=== PATIENT | female | born 1945 | race Caucasian/White ===

== ENCOUNTER 2018-04-06 14:04 | Outpatient (CLI) | payer MEDICARE, BC | END 2018-04-06 14:05 | disposition home or self-care (01) | LOC: BICMAMMO 14:04 | PROVIDERS: ATTEND Internal Medicine | DX: Z12.31 Encounter for screening mammogram for malignant neoplasm of breast (principal); R92.1 Mammographic calcification found on diagnostic imaging of breast; Z80.3 Family history of malignant neoplasm of breast | CPT/HCPCS: 77063; 77067 ==

== ENCOUNTER 2018-11-20 10:45 | Inpatient (IN) | payer MEDICARE, BC ==
[2018-11-20] MEDS ORDERED: Ondansetron PF 4 MG/2 ML Vial ONE (11:22)
[2018-11-20] MEDS ORDERED: Fentanyl 100 MCG/2 ML VIAL ONE (11:22)
[2018-11-20 11:50] LABS: Hemoglobin 12.7 g/dL (12.0-16.0); Mean Corpuscular HGB CONC 33.6 g/dL (32.0-36.0); Mean Corpuscular Hemoglobin 32.3 pg (27.0-31.0); Mean Corpuscular Volume 96.1 fL (78.0-98.0); Mean Platelet Volume 8.7 fL (7.4-10.4); Platelet Count 240 thou/uL (130-400); RBC Distribution Width 12.1 % (11.5-14.5); Red Blood Cell (RBC) Count 3.92 mill/uL (4.20-5.40)
--- NOTE | 2018-11-20 12:04 | CT ---
NONCONTRAST ENHANCED CT IMAGES PELVIS: HISTORY: Evaluate for perirectal abscess. FINDINGS: Noncontrast enhanced CT images of the pelvis demonstrate no dilated loops of small bowel. A large flaco unt of stool is seen in the rectum. A small pocket of gas is seen just to the right of the anus. This may represent possible perianal fissure. Unfortunately, without IV contrast it is difficult to r ule out the possibility of an abscess in this region. Surgical consultation is recommended. IMPRESSION: Small right perianal pocket of gas possibly presenting a fissure or drained abscess. Transcribed Date/Time: 11/20/2018 12:16 PM
[2018-11-20 12:11] LABS: Band 9 % (5-11); Eosinophils 1 % (0-10); Large Platelets SLIGHT; Lymphocytes 2 % (21-51); MDiff Complete? YES; Monocytes 5 % (0-10); Neutrophil 81 % (42-75); Platelet Morphology Comment Appears Adequate; RBC Morphology Normal; Reactive Lymphocytes 2 % (0-10); White Blood Cell (WBC) Count 23.4 thou/uL (4.8-10.8)
[2018-11-20 12:12] LABS: ALT (SGPT) 11 U/L (8-55); AST (SGOT) 16 U/L (5-34); Albumin 3.7 g/dL (3.4-4.8); Alkaline Phosphatase 71 U/L (40-150); Anion Gap 12 mmol/L (10-20); BUN (Urea Nitrogen) 27 mg/dL (9.8-20.1); Bilirubin, Total 0.7 mg/dL (0.2-1.2); Calc. Creatinine Clearance 0 mL/min (70-130); Calcium 9.7 mg/dL (7.8-10.44); Carbon Dioxide 26 mmol/L (23-31); Chloride 92 mmol/L (98-107); Estimated GFR-MDRD 67; Globulin 2.9 g/dL (2.4-3.5); Glucose 119 mg/dL (83-110); Potassium 3.4 mmol/L (3.5-5.1); Protein, Total 6.6 g/dL (6.0-8.3); Sodium 127 mmol/L (136-145)
[2018-11-20] MEDS ORDERED: Lidocaine 1% w/Epinephrine 1:100K 20 ML VIAL ONE (13:08)
[2018-11-20] MEDS ORDERED: metroNIDAZOLE 500 MG/100 ML BAG ONE (14:14)
[2018-11-20 15:04] LABS: Bilirubin Negative (Negative); Blood, Urine Negative (Negative); Clarity CLEAR (Clear); Glucose, Urine (Dipstick) Negative (Negative); Leukocyte Small (Negative); Nitrite Negative (Negative); Protein, Urine (Dipstick) Trace mg/dL (Neg-Trace); Specific Gravity, Urine 1.025 (1.002-1.036); Urobilinogen 0.2 mg/dL (0.2-1.0); pH, Urine 5.5 (5.0-9.0)
[2018-11-20 15:06] LABS: Bacteria/HPF None Seen HPF (None Seen)
[2018-11-20 15:07] LABS: Pathc Cast-AUWi Flag 6.93 (0-2.49)
[2018-11-20 15:15] LABS: Hyaline Casts/LPF 0-3 HYALINE CAST LPF (0-3 Hyaline); Other Casts/LPF None Seen LPF (0-3 Hyaline)
[2018-11-20] MEDS ORDERED: Dextrose 5% in Water 1,000 ML IV PRN (15:50)
[2018-11-20] MEDS ORDERED: Ondansetron PF 4 MG/2 ML Vial IVP PRN (15:50)
[2018-11-20] MEDS ORDERED: Dextrose 50% Abboject 50 ML SYRINGE SLOW IVP PRN (15:50)
[2018-11-20] MEDS ORDERED: HYDROcodone/Acetaminophen 7.5/325 mg Tablet PO PRN ×2 (15:54)
[2018-11-20] MEDS ORDERED: Piperacillin/Tazobactam 4.5 GM VIAL ONE ×2 (16:00→16:01)
[2018-11-20 18:03] VITALS: BMI 34.1
[2018-11-20] MEDS: Piperacillin/Tazobactam 3.375 GM in Sodium Chloride 0.9% 100 ML IVPB SCH (22:02)
[2018-11-20] MEDS: Docusate 100 MG CAP PO SCH (22:03)
--- NOTE | 2018-11-21 00:29 | HP ---
REASON FOR CONSULT: Perirectal abscess. HISTORY OF PRESENT ILLNESS: Ms. Kahn is a 73-year-old woman with a 1-week history of perirectal pain, which has been significantly worse over the past few days. She came into the Urgent Care yesterday and was given antibiotics and sent home. She has been having problems with constipation recently and has had hemorrhoids in the past. This pain was worse. She came back today and was sent to the ER for possible drainage. She has not noticed any discharge from the area. PAST MEDICAL HISTORY: Hypertension, hyperlipidemia, and anxiety. PAST SURGICAL HISTORY: Cholecystectomy, hysterectomy, and knee surgery. SOCIAL HISTORY: Former smoker. Rare alcohol. No drugs. She has adverse drug reactions to codeine. OUTPATIENT MEDICATIONS: Include: 1. Hydrochlorothiazide. 2. Lisinopril. 3. Zocor. 4. Meloxicam. 5. Metoprolol. 6. Clindamycin. 7. Citalopram. REVIEW OF SYSTEMS: Ten system review of systems is negative except per HPI. She has not had any fevers or chills or abdominal pain. PHYSICAL EXAMINATION: VITAL SIGNS: The patient is afebrile. Heart rate 84, respirations 18, 96% saturated on room air, and blood pressure 119/64. GENERAL: Reveals a healthy-appearing woman, in no acute distress, was lying on her side due to pain when she is on her back or sitting. She is not flushed or toxic in appearance. She is not jaundiced or icteric. HEENT: Unremarkable. NECK: Supple without lymphadenopathy. HEART: Regular in its rate and rhythm without murmurs, rubs, or gallops. LUNGS: Clear to auscultation bilaterally. ABDOMEN: Soft, nontender, and nondistended. No palpable masses or hernias. EXTREMITIES: Warm and well perfused without edema. NEUROLOGIC: No focal deficits. PSYCHIATRIC: Alert, oriented, and appropriate. Anal exam reveals erythema over the right buttock and perirectal area. There is fairly severe tenderness in the perirectal area and a pinpoint drainage site with no expressible drainage. No palpable rectal masses. CT obtained by the ER physician showed some gas in the perirectal area, as well as induration of the tissues in that area. LABORATORY DATA: White count is elevated at 23,000 with a left shift. Electrolytes are unremarkable. Potassium is a little low at 3.4 and sodium is a little low at 127. ASSESSMENT: Perirectal abscess with associated cellulitis. It appears that she has had some spontaneous drainage, but this is unlikely to be adequate given the pinpoint nature of the drainage site. I recommended formal I and D with drain placement, which was performed at the bedside. There was no significant pus obtained, so cultures were not sent. The patient will be admitted for IV antibiotics and wound care. If the cellulitis does not improve, then drainage under anesthesia may be necessary. The patient has received Flagyl and Zosyn in the emergency room and will be maintained on antibiotics. Job ID: [id number]
[2018-11-21] MEDS: Piperacillin/Tazobactam 3.375 GM in Sodium Chloride 0.9% 100 ML IVPB SCH ×4 (03:59→21:19)
[2018-11-21 06:17] LABS: Band 19 % (5-11); Lymphocytes 5 % (21-51); MDiff Complete? YES; Mean Corpuscular HGB CONC 34.3 g/dL (32.0-36.0); Mean Corpuscular Volume 96.1 fL (78.0-98.0); Mean Platelet Volume 9.5 fL (7.4-10.4); Monocytes 7 % (0-10); Neutrophil 69 % (42-75); Platelet Count 197 thou/uL (130-400); Platelet Morphology Comment Appears Adequate; RBC Distribution Width 12.2 % (11.5-14.5); RBC Morphology Normal; Red Blood Cell (RBC) Count 3.33 mill/uL (4.20-5.40)
[2018-11-21] MEDS: Docusate 100 MG CAP PO SCH ×2 (08:22→21:19)
[2018-11-21] MEDS: Polyethylene Glycol 3350 17 GM Packet PO SCH (08:22)
[2018-11-21] MEDS ORDERED: Fleet Enema 133 ML BOT FS SCH (10:30)
--- NOTE | 2018-11-21 12:08 | PDOC.GSPN ---
Surgery Progress Note: Subj - Subjective Narrative: No high fevers overnight. Blood count is low on the low side. White count is still elevated at 22. Erythema over right buttock has not really improved. No definite abscess seen on ultrasound although I can't evaluate the tissues deep to the I&D site. She is still very tender over the right perirectal area. She did have a bowel movement this morning. Assessment/plan: Status post I&D of perirectal abscess which had already partially drained spontaneously. Still with significant erythema and leukocytosis. I don't see a definite abscess on bedside ultrasound but if she is not improved by tomorrow I will do an exam under anesthesia in the operating room to make sure there is no undrained component. Surgery Progress Note: Obj - Vital signs Vital signs: Vital Signs - Most Recent Temp Pulse Resp BP Pulse Ox 98.7 F 80 16 95/56 L 95 11/21/18 07:43 11/21/18 07:43 11/21/18 07:43 11/21/18 07:43 11/21/18 07:43 Surgery Progress Note: Results - Labs Result Diagrams: 11/21/18 04:32 11/20/18 11:30 Lab results: Laboratory Results - last 24 hr 11/21/18 04:32 WBC 22.0 H RBC 3.33 L Hgb 11.0 L Hct 32.0 L MCV 96.1 MCH 33.0 H MCHC 34.3 RDW 12.2 Plt Count 197 MPV 9.5 Neutrophils % (Manual) 69 Band Neuts % (Manual) 19 H Lymphocytes % (Manual) 5 L Monocytes % (Manual) 7 Plt Morphology Comment Appears Adequate RBC Morph Comment Normal
[2018-11-21] MEDS ORDERED: Sodium Chloride 0.9% 500 ML IV SCH (12:15)
[2018-11-21] MEDS ORDERED: Acetaminophen 325 MG TAB PO PRN ×2 (17:07)
[2018-11-21] MEDS ORDERED: HYDROcodone/Acetaminophen 7.5/325 mg Tablet PO PRN ×2 (17:13→17:14)
[2018-11-21] MEDS: Morphine 2 MG/ML SYRINGE SLOW IVP PRN (21:19)
[2018-11-22] MEDS: Morphine 2 MG/ML SYRINGE SLOW IVP PRN (02:43)
[2018-11-22] MEDS: Piperacillin/Tazobactam 3.375 GM in Sodium Chloride 0.9% 100 ML IVPB SCH ×4 (03:11→22:37)
[2018-11-22] MEDS ORDERED: Diltiazem 125 MG in Sodium Chloride 0.9% 100 ML IVPB SCH (06:15)
[2018-11-22 06:18] LABS: Band 3 % (5-11); Lymphocytes 1 % (21-51); MDiff Complete? YES; Mean Corpuscular HGB CONC 32.8 g/dL (32.0-36.0); Mean Corpuscular Hemoglobin 31.6 pg (27.0-31.0); Mean Corpuscular Volume 96.3 fL (78.0-98.0); Mean Platelet Volume 8.7 fL (7.4-10.4); Monocytes 1 % (0-10); Neutrophil 95 % (42-75); Platelet Count 233 thou/uL (130-400); Platelet Morphology Comment Appears Adequate; RBC Distribution Width 12.4 % (11.5-14.5); RBC Morphology Normal; Red Blood Cell (RBC) Count 3.82 mill/uL (4.20-5.40); White Blood Cell (WBC) Count 25.8 thou/uL (4.8-10.8)
[2018-11-22] MEDS ORDERED: ALPRAZolam 0.25 MG TAB PO PRN (07:45)
[2018-11-22 08:41] LABS: Anion Gap 14 mmol/L (10-20); BUN (Urea Nitrogen) 13 mg/dL (9.8-20.1); Calc. Creatinine Clearance 127 mL/min (70-130); Calcium 9.3 mg/dL (7.8-10.44); Carbon Dioxide 21 mmol/L (23-31); Chloride 94 mmol/L (98-107); Estimated GFR-MDRD Greater than 90; Glucose 91 mg/dL (83-110); Magnesium 1.6 mg/dL (1.6-2.6); Potassium 3.4 mmol/L (3.5-5.1); Sodium 126 mmol/L (136-145)
[2018-11-22 08:57] LABS: Free T4 (Free Thyroxine) 1.03 ng/dL (0.70-1.48)
[2018-11-22] MEDS: Potassium Chloride 30 MEQ in Sodium Chloride 0.9% 1,000 ML IV SCH ×2 (09:00→22:37)
[2018-11-22] MEDS: Citalopram 20 MG TAB PO SCH (09:00)
[2018-11-22] MEDS: Aspirin 325 MG TAB PO SCH (09:00)
[2018-11-22] MEDS: Polyethylene Glycol 3350 17 GM Packet PO SCH (09:00)
[2018-11-22] MEDS: Docusate 100 MG CAP PO SCH ×2 (09:00→22:37)
[2018-11-22] MEDS ORDERED: Metoprolol Tartrate 50 MG TAB PO SCH (09:00)
--- NOTE | 2018-11-22 09:04 | PDOC.GSPN ---
Surgery Progress Note: Subj - Subjective Narrative: The patient went into atrial fibrillation with RVR last night but does not have any chest pain or shortness of breath. She is still having a lot of perirectal pain and feels weak. White count is still very elevated and has actually gone up a bit. Erythema on the right buttock is really no better and she is still very tender. There is still some murky drainage from the incision but I suspect that she has an undrained or only partially drained deep abscess and have recommended that we do an exam under anesthesia to drain this. Her atrial fibrillation is better rate controlled on a diltiazem drip and is mostly in the 110s. I don't think that it will be beneficial to wait for her cardiac issues to resolve since I think the sepsis is driving the process. The patient and her daughter are in agreement with the plan and she has been posted for the operating room. Surgery Progress Note: Obj - Vital signs Vital signs: Vital Signs - Most Recent Temp Pulse Resp BP Pulse Ox 97.3 F L 106 H 16 101/55 L 94 L 11/22/18 07:57 11/22/18 07:57 11/22/18 07:57 11/22/18 07:57 11/22/18 07:57 Surgery Progress Note: Results - Labs Result Diagrams: 11/22/18 05:31 11/22/18 05:30 Lab results: Laboratory Results - last 24 hr 11/22/18 11/22/18 11/22/18 05:30 05:30 05:31 WBC 25.8 H RBC 3.82 L Hgb 12.0 Hct 36.7 MCV 96.3 MCH 31.6 H MCHC 32.8 RDW 12.4 Plt Count 233 MPV 8.7 Neutrophils % (Manual) 95 H Band Neuts % (Manual) 3 L Lymphocytes % (Manual) 1 L Monocytes % (Manual) 1 Plt Morphology Comment Appears Adequate RBC Morph Comment Normal Sodium 126 L Potassium 3.4 L Chloride 94 L Carbon Dioxide 21 L Anion Gap 14 BUN 13 Creatinine 0.63 Estimated GFR (MDRD) Greater than 90 Glucose 91 Calcium 9.3 Magnesium 1.6 Free T4 1.03 Free T3 1.61 L TSH 3rd Generation 3.0358
[2018-11-22] MEDS ORDERED: Potassium Chloride 20 MEQ/100 ML PREMIX BAG IVPB SCH (09:15)
[2018-11-22] MEDS ORDERED: Potassium Chloride 20 MEQ in Premix Bag 1 BAG IVPB SCH (09:30)
[2018-11-22] MEDS ORDERED: Piperacillin/Tazobactam 3.375 GM VIAL ONE (09:55)
[2018-11-22] MEDS ORDERED: Sodium Chloride 0.9% 100 ML ONE (09:55)
[2018-11-22] MEDS ORDERED: Bupivacaine/Epinephrine 0.25% 30 ML VIAL ONE (10:41)
[2018-11-22] MEDS ORDERED: Ketamine 50 MG/ML (10ML VIAL) ONE (11:02)
[2018-11-22] MEDS ORDERED: Midazolam HCl 2 mg/2 ml Vial ONE (11:14)
--- NOTE | 2018-11-22 11:18 | CON ---
DATE OF CONSULTATION: PURPOSE OF CONSULTATION: Atrial fibrillation with rapid ventricular response. HISTORY OF PRESENT ILLNESS: The patient is a 73-year-old female, who was admitted to the hospital a couple of days ago for perirectal abscess, which was drained by Dr. Ash, but she went to atrial fibrillation with RVR and the Medical Team is consulted for that purpose. The patient had palpitations 1 day prior to this admission. She denied any chest pain. She had some shortness of breath. She never had atrial fibrillation before. Her primary care physician is Dr. Denilson Mejia. Her surrogate decision maker is the patient's daughter, Sherif. PAST MEDICAL HISTORY: 1. Hypertension. 2. Hyperlipidemia. 3. Anxiety. PAST SURGICAL HISTORY: 1. Cholecystectomy. 2. Hysterectomy. 3. Knee surgery. SOCIAL HISTORY: She used to smoke, but quit long time ago. She drinks alcohol sporadically. She does not use any illicit drugs. ALLERGIES: NONE. FAMILY HISTORY: Both mother and father in the 90s. MEDICATIONS: At this time, 1. Citalopram 20 mg once a day. 2. Diltiazem drip 5 mg/hour. 3. Hydrocodone p.r.n. for the pain. 4. Metoprolol 50 mg twice a day. 5. Morphine sulfate p.r.n. 6. Zosyn 3.375 g q.6 hours. 7. MiraLAX 17 g once a day. 8. Simvastatin 10 mg at bedtime. REVIEW OF SYSTEMS: Fourteen systems were reviewed and they were negative, except for those symptoms mentioned in HPI and anxiety, which is her major issue. PHYSICAL EXAMINATION: VITAL SIGNS: Blood pressure is 136/71, pulse is 117, respiratory rate is 16, temperature is 98.4, O2 saturation is 92% on room air. GENERAL: She feels tired and looks sick. She is in quite a bit of pain during my visit. The daughter is present in the room during my visit. HEENT: Head is atraumatic and normocephalic. Eyes are PERRLA. Sclerae are nonicteric. Oral mucosa is somewhat dry. NECK: Supple. No lymphadenopathy. Thyroid is not palpable. LUNGS: Clear. HEART: S1 and S2. Irregularly irregular. No S3. No S4. No any murmur. ABDOMEN: Soft, nontender, nondistended. Bowel sounds are present. No organomegaly. EXTREMITIES: No clubbing, cyanosis, or edema. NEUROLOGICAL: She follows my commands. She moves all her 4 extremities. There is no any motor or sensory deficit. LABORATORY DATA: Labs showed white count of 25.8, hemoglobin 12.0, hematocrit 36.7, platelet count is 233,000. Microbiology, urine culture negative. IMPRESSION: 1. Atrial fibrillation with rapid ventricular response. The patient is on Cardizem drip. We will go up on the drip to 7.5 mg/hour. We will start her on aspirin 325 mg, and there is a high possibility that Dr. Ash is going to take her to the OR again because white count is still high despite of drainage of an abscess and she is in a lot of pain, so most likely there is some additional pocket of pus still present, so we are going to hold on an anticoagulation until this part is done. We will just use aspirin 325 mg daily. Echocardiogram transthoracic. 2. Anxiety is one of the major problems on this patient. I know her for years. She used to be my patient in her clinic. I will start her on 0.25 mg of Xanax twice a day p.r.n. 3. Perirectal abscess with associated cellulitis, status post drainage. 4. Hypertension. 5. Hyperlipidemia. 6. Hyponatremia and hypochloremia. I think she is volume depleted because her BUN is elevated at 27, so we will make sure that she is on IV fluids and recheck her BMP daily. Job ID: [id number]
[2018-11-22] MEDS ORDERED: Fentanyl 100 MCG/2 ML VIAL ONE ×2 (12:36→13:35)
[2018-11-22] MEDS ORDERED: Ondansetron HCl/PF 4 MG/2 ML Vial IVP PRN (12:49)
[2018-11-22] MEDS ORDERED: Promethazine HCl 25 MG/ML VIAL SLOW IVP PRN (12:49)
[2018-11-22] MEDS ORDERED: Promethazine HCl 25 MG/ML VIAL IM PRN ×3 (12:49→12:53)
[2018-11-22] MEDS ORDERED: Naloxone HCl 0.4 mg/ml Vial IV PRN ×2 (12:51→12:53)
[2018-11-22] MEDS ORDERED: Ondansetron PF 4 MG/2 ML Vial IVP PRN ×2 (12:51→12:53)
[2018-11-22] MEDS ORDERED: Zolpidem Tartrate 5 MG TAB PO PRN ×2 (12:51→12:53)
[2018-11-22] MEDS ORDERED: diphenhydrAMINE 25 MG CAP PO PRN ×2 (12:51→12:53)
[2018-11-22] MEDS ORDERED: diphenhydrAMINE 50 MG/ML VIAL IM PRN ×2 (12:51→12:53)
[2018-11-22] MEDS ORDERED: diphenhydrAMINE 50 MG/ML VIAL IVP PRN ×2 (12:51→12:53)
[2018-11-22] MEDS ORDERED: HYDROmorphone 10 mg/100 ml CADD IVPB PRN (12:53)
[2018-11-22] MEDS ORDERED: Communication Order-Pharmacy FS SCH ×2 (13:00)
[2018-11-22] MEDS ORDERED: Succinylcholine Chloride 20 MG/ML 10 ml SYRINGE FS ONE (13:35)
[2018-11-22] MEDS ORDERED: Glycopyrrolate 0.2 MG/ML 5 ML SYRINGE ONE (13:35)
[2018-11-22] MEDS: Atorvastatin Calcium 20 MG TAB PO SCH (15:46)
[2018-11-22] MEDS ORDERED: Morphine 2 MG/ML SYRINGE SLOW IVP PRN (16:42)
[2018-11-22] MEDS ORDERED: Enoxaparin Sodium 40 MG/0.4 ML SYRINGE SC SCH (16:45)
--- NOTE | 2018-11-22 20:03 | PDOC.OP ---
Operative Note - Operative Note Operative Note: PROCEDURE: Incision and debridement of necrotizing soft tissue infection of the right buttock SURGEON: Akil Ash M.D. DATE: 11/22/2018 PREOPERATIVE DIAGNOSIS: Perirectal abscess POSTOPERATIVE DIAGNOSIS: Necrotizing soft tissue infection of the right buttock HISTORY: Patient with perirectal abscess that began to spontaneously drained. She had significant cellulitis and induration which was not resolving so the incision was extended but no large abscess pocket encountered. The tissues appeared healthy and viable at that time to drain was left in place the patient was admitted for IV antibiotics. Her cellulitis and induration did not improve although she did have some murky drainage from the drainage site. The skin around the drainage site appeared dusky and the recommendation was made to proceed to the operating room for incision and drainage. It was suspected that she had an incompletely drained abscess. PROCEDURE IN DETAIL: After informed consent was obtained and appropriate preoperative antibiotics continued the patient was taken to the operating room she was placed in the supine position and general endotracheal anesthesia was administered. She was prepped and draped in the standard sterile fashion and placed in lithotomy position. The buttocks and perineum were prepped and draped in standard sterile fashion. The skin at the I&D site appeared nonviable and was sharply excised revealing necrotic subcutaneous fat underlying with murky drainage. This tissue was cultured and then excised. The necrotic process extended up to the perianal area and posteriorly under the skin of the buttocks but did not involve the muscle or fascia. There was no definite abscess cavity encountered, although on debridement of the necrotic tissue, there was purulent drainage. There was no fluctuance palpable within the rectal wall. The cavity was completely debrided back to healthy-appearing bleeding tissue and the wound was irrigated and hemostasis obtained using Bovie electrocautery. The wound was then packed with Betadine soaked Kerlix and fluffs dressings placed and secured with tape and mesh panties. She was extubated and taken to recovery in good condition. Estimated blood loss was minimal. There were no complications. Specimen is perirectal fluid for Gram stain and culture.
[2018-11-23] MEDS: Piperacillin/Tazobactam 3.375 GM in Sodium Chloride 0.9% 100 ML IVPB SCH ×4 (04:02→21:42)
[2018-11-23 07:12] LABS: Anion Gap 11 mmol/L (10-20); BUN (Urea Nitrogen) 8 mg/dL (9.8-20.1); Calc. Creatinine Clearance 143 mL/min (70-130); Carbon Dioxide 22 mmol/L (23-31); Chloride 98 mmol/L (98-107); Estimated GFR-MDRD Greater than 90; Glucose 102 mg/dL (83-110); Potassium 3.5 mmol/L (3.5-5.1); Sodium 127 mmol/L (136-145)
[2018-11-23] MEDS: Potassium Chloride 30 MEQ in Sodium Chloride 0.9% 1,000 ML IV SCH ×2 (09:46→17:45)
[2018-11-23] MEDS: Enoxaparin Sodium 40 MG/0.4 ML SYRINGE SC SCH ×2 (10:52→21:41)
[2018-11-23] MEDS: Citalopram 20 MG TAB PO SCH (11:06)
[2018-11-23] MEDS: Atorvastatin Calcium 20 MG TAB PO SCH (11:06)
[2018-11-23] MEDS: Aspirin 325 MG TAB PO SCH (11:06)
[2018-11-23] MEDS ORDERED: Fentanyl 100 MCG/2 ML VIAL ONE ×2 (13:37→15:42)
[2018-11-23] MEDS ORDERED: Lidocaine 1% PF 5 ML VIAL ONE (15:14)
[2018-11-23] MEDS ORDERED: PROPOFOL 200 MG/20 ML VIAL ONE (15:14)
[2018-11-23] MEDS ORDERED: Ondansetron HCl/PF 4 MG/2 ML Vial IVP PRN (15:30)
[2018-11-23] MEDS ORDERED: Promethazine HCl 25 MG/ML VIAL SLOW IVP PRN (15:30)
[2018-11-23] MEDS ORDERED: Promethazine HCl 25 MG/ML VIAL IM PRN (15:30)
[2018-11-23] MEDS: Diltiazem 125 MG in Sodium Chloride 0.9% 100 ML IVPB SCH (16:10)
[2018-11-23] MEDS: Polyethylene Glycol 3350 17 GM Packet PO SCH (16:34)
[2018-11-23] MEDS: Docusate 100 MG CAP PO SCH ×2 (16:37→21:41)
--- NOTE | 2018-11-23 16:53 | PRG ---
DATE OF SERVICE: 11/23/2018 SUBJECTIVE: The patient is seen and examined at recovery room. She does not have much complaints to offer. She just had second look at her wounds by Dr. Ash. OBJECTIVE: VITAL SIGNS: Blood pressure is 149/71, pulse is 61, temperature is 36.4 degrees of Celsius, respiratory rate is 18. HEENT: Head is atraumatic and normocephalic. Eyes are PERRLA. Sclerae are nonicteric. Oral mucosa is moist. NECK: Supple. LUNGS: Clear. HEART: S1, S2 normal. No S3. No S4. ABDOMEN: Soft, nontender. Bowel sounds are present. No organomegaly. EXTREMITIES: No clubbing, cyanosis, or edema. Her buttock area is dressed. NEUROLOGICAL: She follows my commands. She moves all 4 extremities. LABORATORY DATA: Labs showed a sodium of 127, potassium 3.5, chloride 98, CO2 of 22, BUN 8, creatinine 0.56, free T4 1.03, free T3 of 1.61, magnesium 1.6, calcium 9.0, glucose 102. Microbiology, prerectal abscess Gram stain, presumptive E coli, moderate gram-negative rods. Sensitivity is still pending. Anaerobic culture is pending. Urine culture negative. IMPRESSION: 1. Atrial fibrillation with rapid ventricular response, converted to normal sinus rhythm last night. 2. Perirectal abscess, status post incision and debridement of necrotizing soft tissue infection of the right buttock. 3. Hyponatremia. 4. Hypokalemia, corrected. 5. Hyperlipidemia. 6. Hypertension. PLAN: Plan is to continue her Cardizem drip overnight since there was some indication that she had some PVCs during the postprocedure time. We will continue aspirin 325 mg once a day. Will apply 1200 mL of oral fluid intake to correct her sodium and continue her Zosyn. DVT prophylaxis with SCDs. Job ID: [id number]
--- NOTE | 2018-11-23 17:10 | PDOC.OP ---
Operative Note - Operative Note Operative Note: PROCEDURE: Repeat exam under anesthesia of necrotizing soft tissue infection of the right perianal area SURGEON: Akil Ash M.D. DATE: 11/23/2018 PREOPERATIVE DIAGNOSIS: Necrotizing soft tissue infection of the right perianal area POSTOPERATIVE DIAGNOSIS: Necrotizing soft tissue infection of the right perianal area, with no further extension HISTORY: Patient presented to the emergency room with clinical picture of a perirectal abscess. She would begin to spontaneously drain from a pinpoint area in the perianal area so this was opened up wider and a small cavity encountered without any pus in it. The patient however did not improve, and remained septic in appearance. No undrained abscess was visible on ultrasound, but due to her failure to improve clinically, the recommendation was made to go to the operating room for exam under anesthesia and further debridement. She was found to have a necrotizing soft tissue infection which was aggressively debrided. Postoperatively she felt much better. Recommendation was made to go back to the operating room for repeat exam under anesthesia, possible repeat debridements, and VAC dressing placement if the infectious process appeared to be stable. PROCEDURE IN DETAIL: After informed consent was obtained and appropriate preoperative antibiotics continued, the patient was taken to the operating room where she was placed in supine position and general anesthesia was administered. She was placed in lithotomy and prepped and draped in the standard sterile fashion, and the wound carefully examined. She had a small amount of additional skin loss, and the nonviable skin edge was sharply excised , but the subcutaneous tissues and underlying muscle were all healthy and viable in appearance. There is no purulence and no necrosis and no odor. The wound was irrigated and hemostasis verified. The wound care team was called to the operating room and an irrigating VAC dressing was placed. Estimated blood loss was minimal. There were no complications. There were no specimens.
[2018-11-24] MEDS: Piperacillin/Tazobactam 3.375 GM in Sodium Chloride 0.9% 100 ML IVPB SCH ×4 (05:30→23:32)
[2018-11-24 06:34] LABS: #Basophils 0.1 thou/uL (0.0-0.2); #Eosinphils 0.4 thou/uL (0.0-0.7); #Lymphocytes 2.3 thou/uL (1.20-3.40); #Monocytes 0.8 thou/uL (0.11-0.59); #Neutrophils 6.1 thou/uL (1.40-6.50); %Basophils 0.6 % (0.0-1.0); %Eosinophils 3.9 % (0.0-10.0); %Lymphocytes 24.4 % (21.0-51.0); %Monocytes 8.4 % (0.0-10.0); %Neutrophils 62.8 % (42.0-75.0); Hemoglobin 11.3 g/dL (12.0-16.0); Mean Corpuscular HGB CONC 32.5 g/dL (32.0-36.0); Mean Corpuscular Hemoglobin 31.7 pg (27.0-31.0); Mean Corpuscular Volume 97.8 fL (78.0-98.0); Mean Platelet Volume 8.3 fL (7.4-10.4); Platelet Count 297 thou/uL (130-400); RBC Distribution Width 12.6 % (11.5-14.5); Red Blood Cell (RBC) Count 3.55 mill/uL (4.20-5.40); White Blood Cell (WBC) Count 9.6 thou/uL (4.8-10.8)
[2018-11-24 06:51] LABS: Anion Gap 12 mmol/L (10-20); BUN (Urea Nitrogen) 8 mg/dL (9.8-20.1); Calc. Creatinine Clearance 157 mL/min (70-130); Calcium 9.1 mg/dL (7.8-10.44); Carbon Dioxide 25 mmol/L (23-31); Chloride 98 mmol/L (98-107); Estimated GFR-MDRD Greater than 90; Glucose 96 mg/dL (83-110); Potassium 3.5 mmol/L (3.5-5.1); Sodium 131 mmol/L (136-145)
[2018-11-24] MEDS: Atorvastatin Calcium 20 MG TAB PO SCH (09:30)
[2018-11-24] MEDS: Polyethylene Glycol 3350 17 GM Packet PO SCH (09:30)
[2018-11-24] MEDS: Enoxaparin Sodium 40 MG/0.4 ML SYRINGE SC SCH ×2 (09:30→19:55)
[2018-11-24] MEDS: Aspirin 325 MG TAB PO SCH (09:30)
[2018-11-24] MEDS: Docusate 100 MG CAP PO SCH ×2 (09:30→19:55)
[2018-11-24] MEDS: Citalopram 20 MG TAB PO SCH (09:30)
[2018-11-24] MEDS: Diltiazem 125 MG in Sodium Chloride 0.9% 100 ML IVPB SCH (10:09)
--- NOTE | 2018-11-24 16:14 | PDOC.PN ---
- Subjective Encounter Start Date: 11/24/18 Encounter Start Time: 16:12 Ms. Kahn was seen in follow-up of consultation for Atrial fibrillation. She says she is feeling better. she has less pain. She has converted back into sinus rhythm. - Objective MAR Reviewed: Yes Vital Signs & Weight: Vital Signs (12 hours) Temp Pulse Resp BP Pulse Ox 11/24/18 15:56 97.6 F 75 15 132/61 95 11/24/18 12:00 98.4 F 73 17 123/69 95 11/24/18 08:00 99.1 F 71 15 149/68 H 97 Weight Weight 237 lb 1.6 oz I&O: 11/23/18 11/24/18 11/25/18 06:59 06:59 06:59 Intake Total 1905 Output Total 1600 Balance 305 Result Diagrams: 11/24/18 06:04 11/24/18 06:04 Phys Exam - Physical Examination HEENT: PERRLA Respiratory: no wheezing, no rales, no rhonchi, clear to auscultation bilateral Cardiovascular: RRR, no significant murmur, no rub Gastrointestinal: soft, non-tender, no distention, positive bowel sounds Musculoskeletal: no edema Dx/Plan (1) Atrial fibrillation Code(s): I48.91 - UNSPECIFIED ATRIAL FIBRILLATION Status: Acute (2) Hypertension Code(s): I10 - ESSENTIAL (PRIMARY) HYPERTENSION Status: Chronic (3) Perirectal abscess Code(s): K61.1 - RECTAL ABSCESS Status: Acute - Plan * Atrial Fibrillation. She has never been diagnosed with this before. * She has converted back into sinus rhythm- will therefore discontinue the Cardizem drip, and switch her over to oral Cardizem * Await Echo results * Will consult Cardiology, given the AFIB was of short duration and during an acute illness * HTN- blood pressure is controlled.
--- NOTE | 2018-11-24 16:51 | PRG ---
DATE OF SERVICE: 11/24/2018 Ms. Kahn is feeling much better today. Her pain is less and she feels clearer and has better strength. Her white count has normalized. She has not had any fevers and her VAC dressing is maintaining a good seal with minimal drainage. We are going to continue with IV antibiotics and VAC dressing and await final culture results. Dr. Marie is going to be assuming the patient's care while I am out of town for the next week. We will ask Case Management to evaluate her for her post discharge planning. The patient may or may not be able to manage her dressing at home. She also has a lot of social stressors since her was readmitted to the hospital yesterday. Job ID: [id number]
[2018-11-24] MEDS ORDERED: Potassium Chloride 20 MEQ TAB PO SCH (18:00)
--- NOTE | 2018-11-24 22:29 | CON ---
DATE OF CONSULTATION: 11/24/2018 REASON FOR CONSULTATION: Atrial fibrillation, paroxysmal. HISTORY OF PRESENT ILLNESS: Ms. Kahn is a very pleasant 73-year-old woman. The patient was seen on 11/20/[address] Ash with a perirectal abscess. She ultimately underwent incision and drainage successfully on 11/23/2018. The patient did have some rapid heart rates on 11/22/2018, typical of atrial fibrillation, rate of 130. She received intravenous diltiazem and was rate controlled. The patient later was converted to sinus rhythm. No previous cardiac history. No previous history of rapid heart rates that she is aware of. HOME MEDICATIONS: 1. Metoprolol 50 mg twice a day. 2. Celexa. 3. Simvastatin. 4. Meloxicam. 5. Lisinopril HCT. 6. Clindamycin. ALLERGIES: CODEINE. FROM WHAT I CAN TELL, THE PATIENT WAS NOT RECEIVING THE METOPROLOL HERE IN THE HOSPITAL PRIOR TO HER SURGERY. PHYSICAL EXAMINATION: GENERAL: This is a pleasant elderly woman, resting comfortably, in no distress. VITAL SIGNS: Blood pressure 132/61, pulse 75 and regular. HEENT: Eyes; sclerae nonicteric. Mouth, mucous membranes moist. NECK: Supple. No lymphadenopathy. LUNGS: Clear. No wheezing, rales, or rhonchi. CARDIAC: Normal S1, normal S2. There is no murmur, rub, or gallop. ABDOMEN: Soft and nontender. EXTREMITIES: No clubbing or cyanosis. There is no edema. SKIN: Warm and dry. LABORATORY DATA: Most recent potassium is 3.5, sodium is 131, TSH 3.035. ASSESSMENT: Paroxysmal atrial fibrillation, occurred while she had an abscess, but off beta blockers. PLAN: 1. We will resume beta blockers. 2. We will anticoagulate. Currently, she is on enoxaparin. We will probably switch to Eliquis 5 mg twice a day at the time of discharge. 3. No other recommendations at this point. The patient can be released home from a cardiac standpoint when disposition is made from a surgical standpoint. Job ID: [id number]
[2018-11-25] MEDS: Piperacillin/Tazobactam 3.375 GM in Sodium Chloride 0.9% 100 ML IVPB SCH ×2 (05:22→09:27)
[2018-11-25] MEDS: Citalopram 20 MG TAB PO SCH (09:27)
[2018-11-25] MEDS: Docusate 100 MG CAP PO SCH ×2 (09:27→20:25)
[2018-11-25] MEDS: Metoprolol Tartrate 50 MG TAB PO SCH ×2 (09:27→20:25)
[2018-11-25] MEDS: Enoxaparin Sodium 40 MG/0.4 ML SYRINGE SC SCH ×2 (09:27→20:25)
[2018-11-25] MEDS: Atorvastatin Calcium 20 MG TAB PO SCH (09:27)
[2018-11-25] MEDS: Polyethylene Glycol 3350 17 GM Packet PO SCH (09:27)
[2018-11-25] MEDS ORDERED: Lidocaine 1% (PF) 30 ML VIAL ONE (11:06)
[2018-11-25] MEDS ORDERED: Lidocaine 1% (PF) 30 ML VIAL NERVE BLCK SCH (11:15)
[2018-11-25] MEDS ORDERED: Acetaminophen 325 MG TAB PO SCH (13:00)
[2018-11-25] MEDS ORDERED: ALPRAZolam 0.25 MG TAB PO PRN (13:05)
--- NOTE | 2018-11-25 13:09 | PDOC.PN ---
- Subjective Encounter Start Date: 11/25/18 Encounter Start Time: 11:45 Ms. Kahn was seen today in follow-up of AFIB and generalized anxiety. She just had local I&D of the abscess at bedside. She says she feels a bit anxious. Her daughter are at bedside and inform me that she has been treated for anxiety as an outpatient. - Objective MAR Reviewed: Yes Vital Signs & Weight: Vital Signs (12 hours) Temp Pulse Resp BP Pulse Ox 11/25/18 12:00 98.3 F 75 20 162/71 H 95 11/25/18 08:00 97.9 F 74 18 170/82 H 74 L 11/25/18 03:38 97.9 F 78 18 158/74 H 96 Weight Weight 243 lb 12.8 oz I&O: 11/24/18 11/25/18 11/26/18 06:59 06:59 06:59 Intake Total 1905 680 Output Total 1600 900 Balance 305 -220 Result Diagrams: 11/24/18 06:04 11/24/18 06:04 Phys Exam - Physical Examination HEENT: PERRLA Respiratory: no wheezing, no rales, no rhonchi, clear to auscultation bilateral Cardiovascular: RRR, no significant murmur, no rub Gastrointestinal: soft, non-tender, no distention, positive bowel sounds Musculoskeletal: pulses present, edema present Dx/Plan (1) Atrial fibrillation Code(s): I48.91 - UNSPECIFIED ATRIAL FIBRILLATION Status: Acute (2) Hypertension Code(s): I10 - ESSENTIAL (PRIMARY) HYPERTENSION Status: Chronic (3) Perirectal abscess Code(s): K61.1 - RECTAL ABSCESS Status: Acute - Plan * Atrial fibrillation- she has converted to sinus. She has been evaluated by Dr. Pardo, and he recommends Metroprolol for rate control, and Eliquis for stroke prophylaxis * Generalized anxiety- continue Citalopram, and will add a low dose Xanax as needed. * HTN- blood pressure is a bit elevated, but this could be related to pain- will observe * Jannette-rectal abscess- continue debridement as per Surgery, and IV Zosyn
[2018-11-25] MEDS ORDERED: Acetaminophen 500 MG TAB PO PRN (14:01)
--- NOTE | 2018-11-25 15:35 | PRG ---
DATE OF SERVICE: 11/25/2018 Ms. Allison Kahn is seen for Dr. Ash today. Her daughters are present, as I examined her, Wound Care is present. Vital signs: Temperature 98.3 degrees, heart rate 75, 162/75. Cultures have grown E coli, sensitive to ampicillin, Augmentin, and Bactrim. Resistant to quinolones. The patient's buttock wound is granulating well, has a slight amount of tunneling cephalad. After informed consent and the alcohol prep, 1% Xylocaine with epinephrine, bad side opened and wound unroofed to facilitate wound care. Wound VAC was then discontinued and Wound Care will wash this daily with soap and water and apply saline wet-to-dry dressing and/or antibiotic ointment Telfa. Wound VAC is not necessary anymore. There is no soft tissue infection remaining and I would change her to oral antibiotics. I have discussed with family, Wound Care and have recommended that wound VAC be discontinued, which has been done. Would advise washing this wound daily to every other day with soap and water and apply saline wet-to-dry dressing or or antibiotic ointment, nonstick Telfa, bedside. This can be done at home or in the senior living per the family's wishes and socially necessary as her is ill and is in the hospital also. I have discussed with this case assistant. There was some bleeding at the bedside and some sutures were placed that will need to be removed in the future as appropriate sutures not available on the floor. The patient will need to see Dr. Ash in outpatient wound care or in 2 weeks in the office to have these sutures removed. This wound should heal up without problems with local wound care. She can be transitioned to oral antibiotics. Job ID: [id number]
[2018-11-25] MEDS: traMADol HCl 50 MG TAB PO PRN ×2 (15:59→22:07)
[2018-11-25] MEDS: Ibuprofen 200 MG TAB PO PRN (16:00)
[2018-11-25] MEDS: Amoxicillin/Potassium Clav 500 MG TAB PO SCH (20:25)
[2018-11-25] MEDS: diphenhydrAMINE 25 MG CAP PO PRN (22:05)
[2018-11-26] MEDS: Ibuprofen 200 MG TAB PO PRN (00:31)
--- NOTE | 2018-11-26 08:22 | OP ---
DATE OF PROCEDURE: 11/25/2018 PREOPERATIVE DIAGNOSIS: Right buttock wound with tunneling, 4 cm cephalad. POSTOPERATIVE DIAGNOSIS: Right buttock wound with tunneling, 4 cm cephalad. PROCEDURE PERFORMED: Incision and drainage of wound, simple incision and drainage. No purulent material, performed to facilitate wound care. ANESTHESIA: 1% Xylocaine with epinephrine. DESCRIPTION OF PROCEDURE: The patient was at bedside with Wound Care present, alcohol prep. Local anesthetic of 1% Xylocaine with epinephrine was infiltrated in the skin and subcutaneous tissue, wound unroofed to facilitate wound care. There was some bleeding in the skin edges, controlled with a 4-0 Prolene. Note, appropriate sutures not available on the floor and could not be obtained in a necessary time. Wet-to-dry dressings were applied and wound VAC discontinued. Job ID: [id number]
[2018-11-26] MEDS: Metoprolol Tartrate 50 MG TAB PO SCH (08:31)
[2018-11-26] MEDS: Docusate 100 MG CAP PO SCH (08:31)
[2018-11-26] MEDS: Citalopram 20 MG TAB PO SCH (08:31)
[2018-11-26] MEDS: Atorvastatin Calcium 20 MG TAB PO SCH (08:31)
[2018-11-26] MEDS: Amoxicillin/Potassium Clav 500 MG TAB PO SCH (08:31)
[2018-11-26] MEDS: traMADol HCl 50 MG TAB PO PRN (08:37)
[2018-11-26] MEDS: diphenhydrAMINE 25 MG CAP PO PRN (08:37)
[2018-11-26] MEDS ORDERED: Meloxicam 15 MG TAB PO SCH (09:00)
[2018-11-26] MEDS ORDERED: Lisinopril/Hydrochlorothiazide 20 mg/12.5 mg Tablet PO SCH (09:00)
[2018-11-26] MEDS: Enoxaparin Sodium 40 MG/0.4 ML SYRINGE SC SCH (09:56)
[2018-11-26] MEDS: Polyethylene Glycol 3350 17 GM Packet PO SCH (09:57)
--- NOTE | 2018-11-26 11:42 | PDOC.PN ---
- Subjective Encounter Start Date: 11/26/18 Encounter Start Time: 11:00 Ms. Kahn was seen today in follow-up of AFIB and nelly-rectal abscess. She notes some discomfort in the area after wound dressing changes, and when she gets up to walk. Otherwise ok. - Objective MAR Reviewed: Yes Vital Signs & Weight: Vital Signs (12 hours) Temp Pulse Pulse Resp BP BP BP 11/26/18 09:56 76 81 158/75 H 161/78 H 11/26/18 08:00 11/26/18 07:50 97.6 F 76 16 158/75 H 11/26/18 04:00 98.3 F 70 20 156/79 H Pulse Ox 11/26/18 09:56 11/26/18 08:00 92 L 11/26/18 07:50 92 L 11/26/18 04:00 93 L Weight Weight 237 lb 6 oz I&O: 11/25/18 11/26/18 11/27/18 06:59 06:59 06:59 Intake Total 680 1070 Output Total 900 3450 Balance -220 -2380 Result Diagrams: 11/24/18 06:04 11/24/18 06:04 Phys Exam - Physical Examination HEENT: PERRLA Respiratory: no wheezing, no rales, no rhonchi, clear to auscultation bilateral Cardiovascular: RRR, no significant murmur, no rub Gastrointestinal: soft, non-tender, no distention, positive bowel sounds Musculoskeletal: no edema, pulses present Neurological: non-focal Dx/Plan (1) Atrial fibrillation Code(s): I48.91 - UNSPECIFIED ATRIAL FIBRILLATION Status: Acute (2) Hypertension Code(s): I10 - ESSENTIAL (PRIMARY) HYPERTENSION Status: Chronic (3) Perirectal abscess Code(s): K61.1 - RECTAL ABSCESS Status: Acute - Plan * AFIB- she has converted to sinus rhythm. Will continue Metoprolol and Eliquis as per Cardiology recommendations * Per-rectal abscess- she has been transitioned to Augmentin * she is stable for transition to assisted .
[2018-11-26 14:25] VITALS: BP 167/75; TEMP 98.1
[2018-11-28] MEDS ORDERED: Acetaminophen 325 MG TAB PO PRN (14:00)
--- NOTE | 2018-11-29 11:28 | DIS ---
DATE OF ADMISSION: 11/22/2018 DATE OF DISCHARGE: 11/26/2018 PRIMARY CARE PHYSICIAN: Dr. Denilson Mejia. DISCHARGE DIAGNOSES: 1. Perirectal abscess. 2. New onset atrial fibrillation. 3. Hypertension. 4. Generalized anxiety. DISCHARGE MEDICATIONS: Include: 1. Augmentin 500 mg twice a day. 2. Eliquis 5 mg twice daily. 3. Metoprolol 50 mg twice a day. 4. Lisinopril/hydrochlorothiazide 20/12.5 once daily. 5. Citalopram 20 mg daily. 6. Colace 100 mg twice a day. 7. MiraLax 17 g daily. 8. Tramadol 50 mg q.6 hours as needed. 9. Simvastatin 40 mg daily. PROCEDURES DONE DURING THE ADMISSION: The patient had an I and D of a perirectal abscess. The patient also had an echocardiogram, in which the ejection fraction was estimated at 55% to 60%. There was some moderate mitral regurgitation, severely elevated pulmonary pressure. CODE STATUS: Full code. ALLERGIES: CODEINE. HOSPITAL COURSE: Ms. Kahn is a very pleasant 73-year-old female, who was admitted by the Surgery Service for a perirectal abscess. She underwent I and D of the abscess. Postoperatively, she developed atrial fibrillation with rapid ventricular response. For this reason, the Hospitalist Service was consulted. She was placed on a Cardizem drip, which controlled her heart rate, and eventually she converted to sinus rhythm. Given that this was a new onset atrial fibrillation, Cardiology was consulted, and the recommendation was for her to stay on metoprolol for heart rate control as well as she was placed on Eliquis for CVA prophylaxis. Once she was clinically stable from the surgical standpoint, she was discharged to the [facility] facility either at [facility] or [facility], in which she was accepted to both. Job ID: [id number]
--- NOTE | 2018-11-29 17:01 | EKG ---
Test Reason : STAT Blood Pressure : / mmHG Vent. Rate : 133 BPM Atrial Rate : 129 BPM P-R Int : 000 ms QRS Dur : 086 ms QT Int : 292 ms P-R-T Axes : 000 072 -72 degrees QTc Int : 434 ms Atrial fibrillation with rapid ventricular response with premature ventricular or aberrantly conducte d complexes Cannot rule out Anterior infarct , age undetermined Abnormal ECG Confirmed by SAMIA TOBAR ([id number]) on 11/29/2018 5:00:37 PM Referred By: Filipe AGUILAR Confirmed By:SAMIA TOBAR
--- NOTE | 2018-11-30 07:10 | PQF ---
ROEL LOMAX TONI MD [id number] CLINICAL DOCUMENTATION CLARIFICATION FORM: POST DISCHARGE DATE: 11/30/2018 ATTN: Dr. Gamez Please exercise your independent, professional judgment in responding to the clarification form. Clinical indicators are provided on the bottom of this form for your review Please check appropriate box(s) to clarify if the following diagnosis has been ruled in or ruled out: Sepsis [ X] Ruled in diagnosis [ X] Continue to treat [ ] Resolved [ ] Ruled out diagnosis. [ ] Cannot rule out diagnosis [ ] Other diagnosis (please specify) [ ] Unable to determine In addition, please specify: Present on Admission (POA): [ X ] Yes [ ] No [ ] Unable to determine For continuity of documentation, please document condition throughout progress notes and discharge summary. Thank You. CLINICAL INDICATORS - SIGNS / SYMPTOMS / LABS Per 5 general surgery PN (Mihir): "I don't think that it will be beneficial to wait for her cardiac issues to resolve since I think the sepsis is driving the process." Per H&P: "White count is elevated at 23,000 with a left shift." RISK FACTORS Per H&P: Perirectal abscess. TREATMENTS Per medications: IV Zosyn 3.375 g q 6 hours. (This form is maintained as a part of the permanent medical record) 2014 [employer]. All Rights Reserved [facility]
== END 2018-11-26 16:20 | DRG 854 ==
LOC: ERS 10:45 → SURG A 15:50 → 2SW 11-22 05:40 → OBSVTOIN 11-22 14:15 → 2NO 11-22 17:23
PROVIDERS: ADMIT Surgery; ATTEND Surgery
PROC: 0JB90ZZ Excision of Buttock Subcutaneous Tissue and Fascia, Open Approach (ICD-10-PCS; principal; 2018-11-22)
PROC: 0HB8XZZ Excision of Buttock Skin, External Approach (ICD-10-PCS; 2018-11-23)
PROC: 0Y900ZZ Drainage of Right Buttock, Open Approach (ICD-10-PCS; 2018-11-25)
DX: A41.9 Sepsis, unspecified organism (principal); K61.1 Rectal abscess; E87.1 Hypo-osmolality and hyponatremia; I48.0 Paroxysmal atrial fibrillation; I10 Essential (primary) hypertension; E78.5 Hyperlipidemia, unspecified; F41.9 Anxiety disorder, unspecified; E87.6 Hypokalemia; B96.20 Unspecified Escherichia coli [E. coli] as the cause of diseases classified elsewhere; Z87.891 Personal history of nicotine dependence; Z88.5 Allergy status to narcotic agent; Z79.899 Other long term (current) drug therapy
CPT/HCPCS: 36415; 36416; 72192; 80048; 80053; 81003; 81015; 83735; 84439; 84443; 84481; 85025; 87070; 87076; 87086; 87186; 87205; 93005; 93010; 93306; 96361; 96365; 96372; 96375; 99213; G0463; J0696; J1650; J2001; J2250; J2270; J2405; J2543; J2704; J3010; J3480; J3490; J7050; Q0163

== ENCOUNTER 2019-02-14 20:30 | Outpatient (CLI) | payer MEDICARE, BC | END 2019-02-14 20:31 | disposition home or self-care (01) | LOC: SLEEPLAB 20:30 | PROVIDERS: ATTEND Family Medicine | DX: G47.33 Obstructive sleep apnea (adult) (pediatric) (principal); R53.83 Other fatigue; F41.9 Anxiety disorder, unspecified; I10 Essential (primary) hypertension; R06.83 Snoring; G47.10 Hypersomnia, unspecified; I48.91 Unspecified atrial fibrillation; M19.90 Unspecified osteoarthritis, unspecified site; G47.00 Insomnia, unspecified | CPT/HCPCS: 95810 ==

== ENCOUNTER 2019-04-08 13:45 | Outpatient (CLI) | payer MEDICARE, BC ==
--- NOTE | 2019-04-08 15:04 | MMO ---
Bilateral MAMMO Bilat Screen [facility]. CLINICAL HISTORY: Patient is 73 years old and is seen for screening. The patient has no family history of breast cancer. The patient has no personal history of cancer. VIEWS: The views performed were: bilateral craniocaudal with tomosynthesis and bilateral mediolateral oblique with tomosynthesis. FILMS COMPARED: The present examination has been compared to prior imaging studies performed at [facility] on 04/02/2017, and at [facility] on 03/20/2015, 03/26/2016 and 04/06/2018. This study has been interpreted with the assistance of computer-aided detection. MAMMOGRAM FINDINGS: There are scattered fibroglandular densities. There are benign appearing calcifications seen in both breasts. There are no suspicious masses, suspicious calcifications, or new areas of architectural distortion. IMPRESSION: THERE IS NO MAMMOGRAPHIC EVIDENCE OF MALIGNANCY. A ROUTINE FOLLOW-UP MAMMOGRAM IN 1 YEAR IS RECOMMENDED. THE RESULTS OF THIS EXAM WERE SENT TO THE PATIENT. ACR BI-RADS Category 2 - Benign finding MAMMOGRAPHY NOTE: 1. A negative mammogram report should not delay a biopsy if a dominant of clinically suspicious mass is present. 2. Approximately 10% to 15% of breast cancers are not detected by mammography. 3. Adenosis and dense breasts may obscure an underlying neoplasm. Reported by: CHINTAN HELLER MD Electonically Signed: [id number]
== END 2019-04-08 13:46 | disposition home or self-care (01) ==
LOC: BICMAMMO 13:45
PROVIDERS: ATTEND Family Medicine
DX: Z12.31 Encounter for screening mammogram for malignant neoplasm of breast (principal)
CPT/HCPCS: 77063; 77067

== ENCOUNTER 2020-04-10 09:57 | Outpatient (CLI) | payer MEDICARE, BC ==
--- NOTE | 2020-04-10 10:37 | MMO ---
Bilateral MAMMO Bilat Screen [facility]. CLINICAL HISTORY: Patient is 74 years old and is seen for screening. The patient has no family history of breast cancer. The patient has no personal history of cancer. VIEWS: The views performed were: bilateral craniocaudal with tomosynthesis and bilateral mediolateral oblique with tomosynthesis. FILMS COMPARED: The present examination has been compared to prior imaging studies performed at [facility] on 04/02/2017, and at [facility] on 03/26/2016, 04/06/2018 and 04/08/2019. This study has been interpreted with the assistance of computer-aided detection. MAMMOGRAM FINDINGS: There are scattered fibroglandular densities. There are stable benign appearing calcifications seen in both breasts. There are no suspicious masses, suspicious calcifications, or new areas of architectural distortion. IMPRESSION: THERE IS NO MAMMOGRAPHIC EVIDENCE OF MALIGNANCY. A ROUTINE FOLLOW-UP MAMMOGRAM IN 1 YEAR IS RECOMMENDED. THE RESULTS OF THIS EXAM WERE SENT TO THE PATIENT. ACR BI-RADS Category 2 - Benign finding MAMMOGRAPHY NOTE: 1. A negative mammogram report should not delay a biopsy if a dominant of clinically suspicious mass is present. 2. Approximately 10% to 15% of breast cancers are not detected by mammography. 3. Adenosis and dense breasts may obscure an underlying neoplasm. Reported by: WINIFRED ANDREWS MD Electonically Signed: [id number]
== END 2020-04-10 09:58 | disposition home or self-care (01) ==
LOC: BICMAMMO 09:57
PROVIDERS: ATTEND Family Medicine
DX: Z12.31 Encounter for screening mammogram for malignant neoplasm of breast (principal)
CPT/HCPCS: 77063; 77067

== ENCOUNTER 2021-04-12 10:00 | Outpatient (CLI) | payer MEDICARE, BC | END 2021-04-12 10:01 | LOC: BICMAMMO 10:00 | PROVIDERS: ATTEND Family Medicine | DX: Z12.31 Encounter for screening mammogram for malignant neoplasm of breast (principal) | CPT/HCPCS: 77063; 77067 ==

== ENCOUNTER 2022-04-14 08:35 | Outpatient (CLI) | payer MEDICARE, BC | END 2022-04-14 08:36 | disposition home or self-care (01) | LOC: BICMAMMO 08:35 | PROVIDERS: ATTEND Family Medicine | DX: Z12.31 Encounter for screening mammogram for malignant neoplasm of breast (principal); Z80.3 Family history of malignant neoplasm of breast | CPT/HCPCS: 77063; 77067 ==

== ENCOUNTER 2023-04-28 09:58 | Outpatient (CLI) | payer MEDICARE, BC | END 2023-04-28 09:59 | disposition home or self-care (01) | LOC: BICMAMMO 09:58 | PROVIDERS: ATTEND Family Medicine | DX: Z12.31 Encounter for screening mammogram for malignant neoplasm of breast (principal); Z80.3 Family history of malignant neoplasm of breast | CPT/HCPCS: 77063; 77067 ==

== ENCOUNTER 2023-07-31 09:51 | Outpatient (CLI) | payer MEDICARE, BC | END 2023-07-31 09:52 | disposition home or self-care (01) | LOC: BICMAMMO 09:51 | PROVIDERS: ATTEND Family Medicine | DX: Z13.820 Encounter for screening for osteoporosis (principal); Z78.0 Asymptomatic menopausal state; M81.0 Age-related osteoporosis without current pathological fracture; M85.89 Other specified disorders of bone density and structure, multiple sites | CPT/HCPCS: 77080 ==

== ENCOUNTER 2024-04-29 10:31 | Outpatient (CLI) | payer MEDICARE, BC | END 2024-04-29 10:32 | disposition home or self-care (01) | LOC: BICMAMMO 10:31 | PROVIDERS: ATTEND Family Medicine | DX: Z12.31 Encounter for screening mammogram for malignant neoplasm of breast (principal); Z80.3 Family history of malignant neoplasm of breast | CPT/HCPCS: 77063; 77067 ==